=== PATIENT | male | born 1945 | race Caucasian/White ===

== ENCOUNTER 2019-06-30 13:58 | Inpatient (IN) ==
[2019-06-30] MEDS ORDERED: *HR* LORazepam 0.5 MG TABLET PO PRN (17:28)
[2019-06-30] MEDS: *HR* Rivaroxaban 10 MG TABLET PO SCH (18:04)
[2019-06-30] MEDS: Gabapentin 300 MG CAPSULE PO SCH (20:41)
[2019-06-30] MEDS: rOPINIRole 0.25 MG TABLET PO SCH (20:42)
[2019-06-30] MEDS: *HR* OxyCODONE/APAP 5/325 TABLET PO PRN (20:42)
[2019-07-01 05:52] LABS: Basophils # 0.1 K/mcL (0.0-0.2); Basophils % 0.4 %; Eosinophils # 0.2 K/mcL (0.0-0.6); Eosinophils % 1.3 %; Hematocrit 35.4 % (37.5-50.1); Hemoglobin 12.2 g/dL (12.9-16.9); Immature Granulocytes % 0.4 % (0-4); Lymphocytes # 1.6 K/mcL (0.6-4.6); Lymphocytes % 11.5 %; Mean Corpuscular HGB Conc 34.5 g/dL (31.6-35.5); Mean Corpuscular Hemoglobin 32.7 pg (28.0-33.3); Mean Corpuscular Volume 94.9 fL (83.0-100.0); Mean Platelet Volume 9.8 fL (9.4-12.4); Monocytes # 1.8 K/mcL (0.0-1.3); Monocytes % 13.2 %; Platelet Count 226 K/mcL (140-400); Red Blood Count 3.73 M/mcL (4.19-5.50); Red Cell Distribution Width 13.4 % (11.5-14.5); Segmented Neutrophils % 73.2 %; White Blood Count 13.7 K/mcL (4.3-11.1)
[2019-07-01 06:06] LABS: BUN/Creatinine Ratio 35 (6-26); Blood Urea Nitrogen 26 mg/dL (8-23); Calcium 8.8 mg/dL (8.6-10.3); Carbon Dioxide 29 mEq/L (23-29); Chloride 104 mEq/L (98-107); Glucose 134 mg/dL (70-105); Osmolality,Calculated 293 (280-300); Potassium 3.7 mEq/L (3.5-5.1); Sodium 138 mEq/L (136-145); eGFR For African Americans > 60 (> 60); eGFR For Non-African Americans > 60 (> 60)
[2019-07-01] MEDS: Multivit/Ca/Min/Fe/FA 1 TAB TABLET PO SCH (08:29)
[2019-07-01] MEDS: Aspirin Enteric Coated 81 MG Tablet PO SCH (08:29)
[2019-07-01] MEDS: Ascorbic Acid 500 MG TABLET PO SCH (08:29)
[2019-07-01] MEDS: FISH OIL PO SCH (08:30)
[2019-07-01] MEDS: amLODIPine 5 MG TABLET PO SCH (08:30)
[2019-07-01] MEDS: OMEGA PO SCH (08:30)
[2019-07-01] MEDS: Vitamin B Complex/Vit C/Vit E 1 EACH TABLET PO SCH (08:30)
[2019-07-01] MEDS: DHA PO SCH (08:30)
[2019-07-01] MEDS: Cholecalciferol (D-3) 1,000 UNIT (25MCG) TABLET PO SCH (08:30)
[2019-07-01] MEDS: Cyanocobalamin (B-12) 1,000 MCG TABLET PO SCH (08:30)
[2019-07-01] MEDS: Gabapentin 300 MG CAPSULE PO SCH ×3 (08:30→20:51)
[2019-07-01] MEDS: EPA PO SCH (08:30)
[2019-07-01] MEDS: *HR* OxyCODONE/APAP 5/325 TABLET PO PRN ×2 (10:22→20:52)
[2019-07-01] MEDS: *HR* Rivaroxaban 10 MG TABLET PO SCH (16:24)
[2019-07-01] MEDS: rOPINIRole 0.25 MG TABLET PO SCH (20:50)
[2019-07-02] MEDS: Multivit/Ca/Min/Fe/FA 1 TAB TABLET PO SCH (08:18)
[2019-07-02] MEDS: Aspirin Enteric Coated 81 MG Tablet PO SCH (08:18)
[2019-07-02] MEDS: Cyanocobalamin (B-12) 1,000 MCG TABLET PO SCH (08:18)
[2019-07-02] MEDS: Cholecalciferol (D-3) 1,000 UNIT (25MCG) TABLET PO SCH (08:18)
[2019-07-02] MEDS: Gabapentin 300 MG CAPSULE PO SCH ×3 (08:18→20:19)
[2019-07-02] MEDS: Ascorbic Acid 500 MG TABLET PO SCH (08:18)
[2019-07-02] MEDS: *HR* OxyCODONE/APAP 5/325 TABLET PO PRN (08:18)
[2019-07-02] MEDS: EPA PO SCH (08:19)
[2019-07-02] MEDS: OMEGA PO SCH (08:19)
[2019-07-02] MEDS: Vitamin B Complex/Vit C/Vit E 1 EACH TABLET PO SCH (08:19)
[2019-07-02] MEDS: DHA PO SCH (08:19)
[2019-07-02] MEDS: amLODIPine 5 MG TABLET PO SCH (08:19)
[2019-07-02] MEDS: FISH OIL PO SCH (08:19)
[2019-07-02] MEDS: *HR* Rivaroxaban 10 MG TABLET PO SCH (17:30)
[2019-07-02] MEDS: rOPINIRole 0.25 MG TABLET PO SCH (20:18)
[2019-07-03] MEDS: Multivit/Ca/Min/Fe/FA 1 TAB TABLET PO SCH (08:24)
[2019-07-03] MEDS: amLODIPine 5 MG TABLET PO SCH (08:24)
[2019-07-03] MEDS: Ascorbic Acid 500 MG TABLET PO SCH (08:24)
[2019-07-03] MEDS: Cholecalciferol (D-3) 1,000 UNIT (25MCG) TABLET PO SCH (08:24)
[2019-07-03] MEDS: Gabapentin 300 MG CAPSULE PO SCH ×3 (08:24→19:38)
[2019-07-03] MEDS: Aspirin Enteric Coated 81 MG Tablet PO SCH (08:24)
[2019-07-03] MEDS: *HR* OxyCODONE/APAP 5/325 TABLET PO PRN (08:24)
[2019-07-03] MEDS: Cyanocobalamin (B-12) 1,000 MCG TABLET PO SCH (08:24)
[2019-07-03] MEDS: Vitamin B Complex/Vit C/Vit E 1 EACH TABLET PO SCH (08:24)
[2019-07-03] MEDS: OMEGA PO SCH (08:28)
[2019-07-03] MEDS: FISH OIL PO SCH (08:28)
[2019-07-03] MEDS: EPA PO SCH (08:28)
[2019-07-03] MEDS: DHA PO SCH (08:28)
[2019-07-03 10:52] LABS: Basophils % 0.4 %; Eosinophils # 0.2 K/mcL (0.0-0.6); Eosinophils % 1.6 %; Hematocrit 34.9 % (37.5-50.1); Hemoglobin 11.7 g/dL (12.9-16.9); Immature Granulocytes % 0.4 % (0-4); Lymphocytes # 1.1 K/mcL (0.6-4.6); Lymphocytes % 11.7 %; Mean Corpuscular HGB Conc 33.5 g/dL (31.6-35.5); Mean Corpuscular Hemoglobin 32.8 pg (28.0-33.3); Mean Corpuscular Volume 97.8 fL (83.0-100.0); Monocytes # 1.1 K/mcL (0.0-1.3); Monocytes % 11.5 %; Neutrophils # 7.1 K/mcL (1.6-8.9); Platelet Count 277 K/mcL (140-400); Red Blood Count 3.57 M/mcL (4.19-5.50); Red Cell Distribution Width 13.3 % (11.5-14.5); Segmented Neutrophils % 74.4 %; White Blood Count 9.5 K/mcL (4.3-11.1)
[2019-07-03 11:03] LABS: BUN/Creatinine Ratio 44 (6-26); Blood Urea Nitrogen 30 mg/dL (8-23); Calcium 9.1 mg/dL (8.6-10.3); Carbon Dioxide 28 mEq/L (23-29); Chloride 106 mEq/L (98-107); Glucose 138 mg/dL (70-105); Osmolality,Calculated 298 (280-300); Potassium 3.6 mEq/L (3.5-5.1); Sodium 140 mEq/L (136-145); eGFR For African Americans > 60 (> 60); eGFR For Non-African Americans > 60 (> 60)
[2019-07-03] MEDS: *HR* Rivaroxaban 10 MG TABLET PO SCH (17:20)
[2019-07-03] MEDS: rOPINIRole 0.25 MG TABLET PO SCH (19:37)
[2019-07-04] MEDS: *HR* OxyCODONE/APAP 5/325 TABLET PO PRN ×2 (02:38→21:04)
[2019-07-04] MEDS: Cholecalciferol (D-3) 1,000 UNIT (25MCG) TABLET PO SCH (08:52)
[2019-07-04] MEDS: Aspirin Enteric Coated 81 MG Tablet PO SCH (08:52)
[2019-07-04] MEDS: Gabapentin 300 MG CAPSULE PO SCH ×3 (08:52→21:04)
[2019-07-04] MEDS: Multivit/Ca/Min/Fe/FA 1 TAB TABLET PO SCH (08:52)
[2019-07-04] MEDS: Ascorbic Acid 500 MG TABLET PO SCH (08:52)
[2019-07-04] MEDS: Vitamin B Complex/Vit C/Vit E 1 EACH TABLET PO SCH (08:52)
[2019-07-04] MEDS: amLODIPine 5 MG TABLET PO SCH (08:53)
[2019-07-04] MEDS: Cyanocobalamin (B-12) 1,000 MCG TABLET PO SCH (08:53)
[2019-07-04] MEDS: DHA PO SCH (08:54)
[2019-07-04] MEDS: FISH OIL PO SCH (08:54)
[2019-07-04] MEDS: EPA PO SCH (08:54)
[2019-07-04] MEDS: OMEGA PO SCH (08:54)
[2019-07-04] MEDS ORDERED: MOM Conc 10 ML UD.LIQ PO ONE ×2 (10:34→23:13)
[2019-07-04] MEDS: *HR* Rivaroxaban 10 MG TABLET PO SCH (17:51)
[2019-07-04] MEDS: rOPINIRole 0.25 MG TABLET PO SCH (21:04)
[2019-07-04] MEDS ORDERED: Docusate Oral Soln 100 MG/10 ML UDC GTUBE PRN (23:14)
[2019-07-05] MEDS ORDERED: MILK OF MAGNESIA PO ONE (09:17)
[2019-07-05] MEDS: Cyanocobalamin (B-12) 1,000 MCG TABLET PO SCH (09:52)
[2019-07-05] MEDS: DHA PO SCH (09:52)
[2019-07-05] MEDS: OMEGA PO SCH (09:52)
[2019-07-05] MEDS: Ascorbic Acid 500 MG TABLET PO SCH (09:52)
[2019-07-05] MEDS: EPA PO SCH (09:52)
[2019-07-05] MEDS: Gabapentin 300 MG CAPSULE PO SCH ×3 (09:52→20:15)
[2019-07-05] MEDS: Vitamin B Complex/Vit C/Vit E 1 EACH TABLET PO SCH (09:52)
[2019-07-05] MEDS: amLODIPine 5 MG TABLET PO SCH (09:52)
[2019-07-05] MEDS: FISH OIL PO SCH (09:52)
[2019-07-05] MEDS: Multivit/Ca/Min/Fe/FA 1 TAB TABLET PO SCH (09:52)
[2019-07-05] MEDS: Cholecalciferol (D-3) 1,000 UNIT (25MCG) TABLET PO SCH (09:52)
[2019-07-05] MEDS: Aspirin Enteric Coated 81 MG Tablet PO SCH (09:52)
[2019-07-05] MEDS ORDERED: Docusate Oral Soln 100 MG/10 ML UDC PO PRN (10:43)
[2019-07-05] MEDS: *HR* Rivaroxaban 10 MG TABLET PO SCH (16:29)
[2019-07-05] MEDS: rOPINIRole 0.25 MG TABLET PO SCH (20:14)
[2019-07-06] MEDS: Aspirin Enteric Coated 81 MG Tablet PO SCH (08:09)
[2019-07-06] MEDS: Cholecalciferol (D-3) 1,000 UNIT (25MCG) TABLET PO SCH (08:10)
[2019-07-06] MEDS: Ascorbic Acid 500 MG TABLET PO SCH (08:10)
[2019-07-06] MEDS: Vitamin B Complex/Vit C/Vit E 1 EACH TABLET PO SCH (08:10)
[2019-07-06] MEDS: amLODIPine 5 MG TABLET PO SCH (08:10)
[2019-07-06] MEDS: Gabapentin 300 MG CAPSULE PO SCH ×3 (08:10→20:05)
[2019-07-06] MEDS: Multivit/Ca/Min/Fe/FA 1 TAB TABLET PO SCH (08:10)
[2019-07-06] MEDS: FISH OIL PO SCH (08:11)
[2019-07-06] MEDS: EPA PO SCH (08:11)
[2019-07-06] MEDS: DHA PO SCH (08:11)
[2019-07-06] MEDS: OMEGA PO SCH (08:11)
[2019-07-06] MEDS: Cyanocobalamin (B-12) 1,000 MCG TABLET PO SCH (08:11)
[2019-07-06] MEDS ORDERED: MILK OF MAGNESIA PO ONE (09:17)
[2019-07-06] MEDS: *HR* Rivaroxaban 10 MG TABLET PO SCH (15:47)
[2019-07-06] MEDS: rOPINIRole 0.25 MG TABLET PO SCH (20:03)
[2019-07-07] MEDS: *HR* OxyCODONE/APAP 5/325 TABLET PO PRN (01:51)
[2019-07-07] MEDS: Cyanocobalamin (B-12) 1,000 MCG TABLET PO SCH (07:59)
[2019-07-07] MEDS: Cholecalciferol (D-3) 1,000 UNIT (25MCG) TABLET PO SCH (07:59)
[2019-07-07] MEDS: Vitamin B Complex/Vit C/Vit E 1 EACH TABLET PO SCH (07:59)
[2019-07-07] MEDS: EPA PO SCH (08:00)
[2019-07-07] MEDS: Aspirin Enteric Coated 81 MG Tablet PO SCH (08:00)
[2019-07-07] MEDS: amLODIPine 5 MG TABLET PO SCH (08:00)
[2019-07-07] MEDS: Gabapentin 300 MG CAPSULE PO SCH ×3 (08:00→20:37)
[2019-07-07] MEDS: Multivit/Ca/Min/Fe/FA 1 TAB TABLET PO SCH (08:00)
[2019-07-07] MEDS: DHA PO SCH (08:00)
[2019-07-07] MEDS: FISH OIL PO SCH (08:00)
[2019-07-07] MEDS: OMEGA PO SCH (08:00)
[2019-07-07] MEDS: Ascorbic Acid 500 MG TABLET PO SCH (08:00)
[2019-07-07] MEDS: *HR* Rivaroxaban 10 MG TABLET PO SCH (16:32)
[2019-07-07] MEDS: rOPINIRole 0.25 MG TABLET PO SCH (20:36)
[2019-07-08] MEDS: amLODIPine 5 MG TABLET PO SCH (08:21)
[2019-07-08] MEDS: Multivit/Ca/Min/Fe/FA 1 TAB TABLET PO SCH (08:22)
[2019-07-08] MEDS: Vitamin B Complex/Vit C/Vit E 1 EACH TABLET PO SCH (08:22)
[2019-07-08] MEDS: Gabapentin 300 MG CAPSULE PO SCH (08:22)
[2019-07-08] MEDS: Aspirin Enteric Coated 81 MG Tablet PO SCH (08:22)
[2019-07-08] MEDS: Ascorbic Acid 500 MG TABLET PO SCH (08:22)
[2019-07-08] MEDS: Cholecalciferol (D-3) 1,000 UNIT (25MCG) TABLET PO SCH (08:22)
[2019-07-08] MEDS: OMEGA PO SCH (08:23)
[2019-07-08] MEDS: EPA PO SCH (08:23)
[2019-07-08] MEDS: FISH OIL PO SCH (08:23)
[2019-07-08] MEDS: DHA PO SCH (08:23)
[2019-07-08] MEDS: Cyanocobalamin (B-12) 1,000 MCG TABLET PO SCH (08:23)
[2019-07-08 08:31] VITALS: BP 102/63
== END 2019-07-08 11:41 | disposition home health service (06) | DRG 560 ==
LOC: INPGRE 16:44
PROVIDERS: ADMIT Family Medicine; ATTEND Family Medicine